=== PATIENT | male | born 1965 | race Caucasian/White ===

== ENCOUNTER → 2020-07-06 11:07 | Outpatient (BNVA) | payer OTHER, SELFPAY | PROVIDERS: Visit Provider Nurse Practitioner Family | DX: Z11.59 Encounter for screening for other viral diseases (principal) | CPT/HCPCS: 87635 ==

== ENCOUNTER 2023-10-29 07:08 | Emergency (ER) | payer OTHER, SELFPAY ==
[2023-10-29 07:43] VITALS: BMI 26.9
[2023-10-29 07:45] VITALS: BP 117/91; PULSE 104; RESP 20; O2SAT 95
--- NOTE | 2023-10-29 08:15 | W.ED.BACK ---
HPI - Back Pain/Injury General: Chief Complaint: Back Pain/Injury Stated Complaint: neck pain, headache Time Seen by Provider: 10/29/23 07:31 Source: patient Mode of arrival: ambulatory Limitations: no limitations History of Present Illness: This patient comes to the emergency department because he is been having some neck ache and occipital headache over the past few days. He attributes to overuse on days prior to onset of symptoms he has been splitting and carrying a lot of heavy wood and states that he developed some upper back and neck soreness from that activity. He states headache is related to when his neck feels tight. He denies any acute onset of headache history of any serious headache disorders etc. He does have a history of similar symptoms occurring in the past with neck soreness and headache. He denies any visual changes loss of sensation or motor function. Denies any falls or injuries etc. He states he has done some neck exercises but it does not seem to help him much. He has no other medications that he has been taking. Quality: dull, aching, spasming and throbbing Associated symptoms: Deny abdominal pain, chills, dysuria, fever(s), nausea or vomiting Review of Systems Const: Denies: fever(s) or chills Eyes: Denies: change in vision ENMT: Denies: odynophagia Card: Denies: chest pain or palpitations Resp: Denies: dyspnea, productive cough or non-productive cough GI: Denies: abdominal pain, nausea or vomiting : Denies: flank pain, difficulty urinating or dysuria Musc: Reports: neck pain and back pain; Denies: extremity pain or extremity swelling Skin/Breast: Denies: rash or pruritus Neuro: Reports: headache(s); Denies: numbness in extremities, weakness in extremities or sensory changes Psych: Denies: anxiety or depression PFSH ED PFSH: Social History Smoking and tobacco/nicotine status: never used tobacco/nicotine Alcohol intake: never Substance/Drug Use: never Physical Exam Narrative: EXAM NARRATIVE: He is alert and in no acute distress interactive and speech is goal-directed and fluent. Const: COMMON NORMALS: no acute distress, average body habitus and patient oriented x3 GENERAL APPEARANCE: cooperative and comfortable ORIENTATION/CONSCIOUSNESS: Yes awake HENMT: COMMON NORMALS: normocephalic, atraumatic, Normal nasal mucous membranes and turbinates present and moist oral mucous membranes HEAD & SCALP: normocephalic and atraumatic NOSE: Normal nasal mucous membranes and turbinates present Eye: COMMON NORMALS: Equal, round and reactive pupils present and conjunctivae normal CONJUNCTIVA: Yes conjunctivae normal PUPIL: Yes Equal, round and reactive pupils present Neck/C-Spine: OTHER: He has restricted sidebending rotation to the left and right approximately 75% of normal. He does have intact and what appears to be normal forward bending and backward bending. He does have some tenderness along the superior ridges the trapezius bilaterally as well as some of the paracervical muscles in the mid cervical and lower cervical region. There is no midline tenderness or step-off. Resp: COMMON NORMALS: normal respiratory effort EFFORT & INSPECTION: Yes able to speak in complete sentences Cardio: COMMON NORMALS: regular rate and Peripheral pulses 2+ throughout RATE: regular rate PERIPHERAL PULSES: Peripheral pulses 2+ throughout : COMMON NORMALS: Yes no CVA tenderness BLADDER/KIDNEY EXAM: Yes no CVA tenderness Back/Pelvis: COMMON NORMALS: no CVA tenderness, thoracic and lumbar spine normal to inspection, no thoracic nor lumbar tenderness, thoraco-lumbar ROM normal and straight leg raise negative bilaterally Extremity: COMMON NORMALS: normal to inspection, full ROM and capillary refill normal Neuro: COMMON NORMALS: patient oriented x3, moves all extremities, no focal motor deficits and no sensory deficits noted CRANIAL NERVES: Yes CN normal except as noted Psych: COMMON NORMALS: mental status grossly normal Skin: COMMON NORMALS: no rashes or lesions noted and turgor normal GENERAL SKIN EXAM: no rashes or lesions noted and turgor normal Course Vital Signs: Vital signs: Vital Signs Pulse Rate 104 H 10/29/23 07:45 Respiratory Rate 20 H 10/29/23 07:45 Blood Pressure 117/91 10/29/23 07:45 Pulse Oximetry 95 10/29/23 07:45 Oxygen Delivery Me thod Room Air 10/29/23 07:45 MDM - Back Pain/Injury Medical Decision Making Patient with neck pain and occipital headache without any evidence to suggest a serious etiology to his current symptoms. There is no falls trauma etc. Clinical examination suggest spasm and soft tissue tenderness of the paracervical and trapezius muscles. No evidence at this time to suggest a otherwise worrisome or concerning emergency medical condition. We will give him symptomatic treatment with anti-inflammatories, muscle relaxants as well as ice massage and follow-up if symptoms persist or worsen. No radiology studies performed this visit Discharge Plan Discharge Patient Disposition: Home Clinical Impression: Trapezius muscle spasm, Neck pain, musculoskeletal Condition: Stable Prescriptions: New methocarbamol 750 mg tablet 750 mg PO BID Qty: 14 0RF No Action doxycycline hyclate 100 mg tablet 100 mg PO BID 10 Days Qty: 20 0RF fluticasone propionate [Flonase Allergy Relief] 50 mcg/actuation spray,suspension 2 spray intranasal DAILY Qty: 16 0RF Rx Instructions: administer into each nostril cetirizine 10 mg tablet 10 mg PO DAILY Qty: 30 0RF cephalexin 500 mg capsule 500 mg PO TID 7 Days Qty: 21 0RF Discharge Orders: Discharge ED (Routine); Ordered 10/29/23 Ordered By: Sanya Greer Discharge Diet: Usual diet Discharge Activity: Increase activity as tolerated Patient Instructions: Opioid Safety, Pain Management Activity Restrictions/Additional Instructions: As we discussed you do not have any evidence of a serious condition at this time. We have provided a prescription of some medicine to help relax the muscles and reduce your symptoms however if this is not helpful or if your symptoms persist or worsen or new symptoms develop return to the emergency department for reevaluation. We also recommend using ice pack or cool pack to your neck for 15 to 20 minutes 3-4 times daily. Coding Level of Care Code ED Certified Cytotechnologist for Beatriz Prince
[2023-10-29] MEDS: ketorolac 30 mg/mL INJ 15 MG IM (08:36)
[2023-10-29 09:15] VITALS: BP 117/91; PULSE 104; RESP 20; O2SAT 95
== END 2023-10-29 09:16 | disposition home or self-care (01) ==
PROVIDERS: Emergency Provider Emergency Medicine
DX: M62.830 Muscle spasm of back (principal); M54.2 Cervicalgia
CPT/HCPCS: 96372; 99284; J1885

== ENCOUNTER → 2024-02-23 16:09 | Outpatient (BNVA) | payer OTHER, SELFPAY | PROVIDERS: Visit Provider Family Medicine | DX: B19.20 Unspecified viral hepatitis C without hepatic coma (principal); Z72.51 High risk heterosexual behavior; Z12.5 Encounter for screening for malignant neoplasm of prostate; K29.70 Gastritis, unspecified, without bleeding; R53.83 Other fatigue; Z87.898 Personal history of other specified conditions; F15.11 Other stimulant abuse, in remission | CPT/HCPCS: 80053; 80061; 84153; 84439; 84443; 85025; 86705; 86706; 86709; 86803; 87340; 87522; 87806 ==

== ENCOUNTER → 2025-04-05 13:47 | Outpatient (BNVA) | payer OTHER, SELFPAY | PROVIDERS: Family Provider Family Medicine; PCP Family Medicine; Visit Provider Family Medicine | DX: B19.20 Unspecified viral hepatitis C without hepatic coma (principal) | CPT/HCPCS: 85025 ==

== ENCOUNTER → 2025-04-06 13:41 | Outpatient (BNVA) | payer OTHER, SELFPAY | PROVIDERS: Family Provider Family Medicine; PCP Family Medicine | DX: B19.20 Unspecified viral hepatitis C without hepatic coma (principal) | CPT/HCPCS: 80053; 85025; 87522 ==

== ENCOUNTER → 2025-07-26 12:26 | Outpatient (BNVA) | payer OTHER, SELFPAY | PROVIDERS: Family Provider Family Medicine; PCP Family Medicine; Visit Provider Family Medicine | DX: B19.20 Unspecified viral hepatitis C without hepatic coma (principal) | CPT/HCPCS: 87340; 87522 ==